=== PATIENT | male | born 1985 | race Caucasian/White ===

== ENCOUNTER → 2018-05-08 | Outpatient (CLI) | payer OTHER ==
[~2018-05-08] MED LIST: ACETAMINOPHEN 325 MG TABLET PO PRN; DIPHENHYDRAMINE HCL 25 MG CAPSULE PO PRN; FUROSEMIDE INJ/PF 20 MG/2 ML SDV IV PRN; NORMAL SALINE 250 ML IV PRN
== END ==
LOC: 2S 11:25 → II 11:25
PROVIDERS: ATTEND Internal Medicine
DX: C92.00 Acute myeloblastic leukemia, not having achieved remission (principal); D64.9 Anemia, unspecified

== ENCOUNTER 2018-06-09 10:47 | Outpatient (CLI) | payer OTHER ==
[~2018-06-09 10:47] MED LIST changes: -FUROSEMIDE INJ/PF 20 MG/2 ML SDV IV PRN; -NORMAL SALINE 250 ML IV PRN; +NORMAL SALINE INJ/PF 0.9% 10 ML SDV IV PRN
[2018-06-09 11:32] LABS: HEMATOCRIT 27.6 % (37.9-51.0); HEMOGLOBIN 9.6 g/dL (13.5-17.0); MEAN CORPUSCULAR HEMOGLOBIN 31.3 pg (27.0-33.4); MEAN CORPUSCULAR VOLUME 90 fl (80-97); RED BLOOD COUNT 3.08 10^6/uL (4.35-5.55); RED CELL DISTRIBUTION WIDTH 14.8 % (11.5-14.0); WHITE BLOOD COUNT 2.3 10^3/uL (4.0-10.5)
[2018-06-09 11:59] LABS: PLATELET COUNT 13 10^3/uL (150-450)
[2018-06-09] MEDS ORDERED: NORMAL SALINE 250 ML IV PRN (20:30)
[2018-06-09] MEDS ORDERED: NORMAL SALINE INJ/PF 0.9% 10 ML SDV IV SCH (22:00)
[2018-06-09 23:07] VITALS: BP 122/72
== END 2018-06-09 23:10 | disposition home or self-care (01) ==
LOC: LAB 10:47 → 2N 19:47 → II 23:10
PROVIDERS: ATTEND Internal Medicine
PROC: 30243R1 Transfusion of Nonautologous Platelets into Central Vein, Percutaneous Approach (ICD-10-PCS; principal; 2018-06-09)
DX: C92.00 Acute myeloblastic leukemia, not having achieved remission (principal); D69.6 Thrombocytopenia, unspecified
CPT/HCPCS: 86900; 86901; 36430; P9035; J3490; J1642